=== PATIENT | female | born 1940 | race Caucasian/White ===

== ENCOUNTER 2023-10-17 09:45 | Emergency (ER) | payer MEDICARE, BC ==
[~2023-10-17] VITALS: Ht 152.4 cm; Wt 51.0 kg
[2023-10-17] VITALS (13 sets, daily range): BP systolic 156–207; BP diastolic 77–93
== END 2023-10-17 12:40 | disposition home or self-care (01) ==
LOC: ED 09:45
PROC: 0HQ1XZZ Repair Face Skin, External Approach (ICD-10-PCS; principal; 2023-10-17)
DX: S01.81XA Laceration without foreign body of other part of head, initial encounter (principal); I10 Essential (primary) hypertension; W10.9XXA Fall (on) (from) unspecified stairs and steps, initial encounter; Y92.22 Religious institution as the place of occurrence of the external cause

== ENCOUNTER 2024-10-17 00:10 | Emergency (ER) | payer MEDICARE, BC ==
[~2024-10-17] VITALS: Ht 152.4 cm; Wt 51.0 kg
[2024-10-17 00:45] VITALS: BP 165/71
== END 2024-10-17 00:52 | disposition home or self-care (01) ==
LOC: ED 00:10
PROC: 0HQ0XZZ Repair Scalp Skin, External Approach (ICD-10-PCS; principal; 2024-10-17)
DX: S01.01XA Laceration without foreign body of scalp, initial encounter (principal); I10 Essential (primary) hypertension; K21.9 Gastro-esophageal reflux disease without esophagitis; W01.198A Fall on same level from slipping, tripping and stumbling with subsequent striking against other object, initial encounter